=== PATIENT | female | born 1995 | race Caucasian/White ===

== ENCOUNTER 2020-06-29 10:51 | Emergency (ER) | payer OTHER ==
[~2020-06-29 10:51] MED LIST: COLACE 100MG C100 MG PO; IBUPROFEN600 MG PO; NORCO 10-325 T1 EACH PO; OMNICEF 300 MG300 MG PO
[2020-06-29 14:04] LABS: HEMOGLOBIN 13.9 gm/dl (12.3-15.3); RED BLOOD COUNT 4.53 M/UL (4.00-5.10); WHITE BLOOD COUNT 13.5 K/UL (4.5-11.0)
[2020-06-29 14:33] LABS: BUN/CREATININE RATIO 13 (0-10)
[2020-06-29] MEDS ORDERED: PHENERGAN 25 MG25 M1 PO (21:09)
== END 2020-06-29 21:30 | disposition home or self-care (01) ==
LOC: ER1 10:51
PROVIDERS: Physician Assistant Medical
DX: O99.351 Diseases of the nervous system complicating pregnancy, first trimester (principal); G43.909 Migraine, unspecified, not intractable, without status migrainosus; Z3A.09 9 weeks gestation of pregnancy
CPT/HCPCS: 80053; 81001; 85025; 87081; 87086; 87880; 96374; 96375; 99284; J1200; J2270; J2765

== ENCOUNTER 2020-11-04 10:52 | Outpatient (CLI) | payer OTHER ==
[~2020-11-04 10:52] MED LIST changes: +PHENERGAN 25 MG25 M1 PO
[2020-11-04 11:36] LABS: HEMOGLOBIN 12.2 gm/dl (12.3-15.3); RED BLOOD COUNT 4.04 M/UL (4.00-5.10); WHITE BLOOD COUNT 6.6 K/UL (4.5-11.0)
== END 2020-11-04 15:50 | disposition home or self-care (01) ==
LOC: GENOP 10:52
PROVIDERS: Obstetrics & Gynecology
DX: O47.02 False labor before 37 completed weeks of gestation, second trimester (principal); Z3A.27 27 weeks gestation of pregnancy; O99.352 Diseases of the nervous system complicating pregnancy, second trimester; G43.909 Migraine, unspecified, not intractable, without status migrainosus; O98.512 Other viral diseases complicating pregnancy, second trimester; U07.1 COVID-19
CPT/HCPCS: 36415; 81001; 82731; 83518; 85025; 96372; J0702; U0002

== ENCOUNTER 2020-11-05 12:08 | Outpatient (CLI) | payer OTHER | END 2020-11-05 13:40 | disposition home or self-care (01) | LOC: GENOP 12:08 | DX: O60.00 Preterm labor without delivery, unspecified trimester (principal); Z3A.00 Weeks of gestation of pregnancy not specified | CPT/HCPCS: 59025 ==

== ENCOUNTER 2020-11-09 23:28 | Emergency (ER) | payer OTHER ==
[2020-11-10 01:29] LABS: HEMOGLOBIN 12.8 gm/dl (12.3-15.3); RED BLOOD COUNT 4.43 M/UL (4.00-5.10); WHITE BLOOD COUNT 8.8 K/UL (4.5-11.0)
[2020-11-10 01:50] LABS: BUN/CREATININE RATIO 10 (0-10)
[2020-11-10] MEDS ORDERED: VENTOLIN HFA 66.7 GM INH (05:55)
== END 2020-11-10 06:00 | disposition home or self-care (01) ==
LOC: ER1 23:28
PROVIDERS: Family Medicine
DX: O98.513 Other viral diseases complicating pregnancy, third trimester (principal); U07.1 COVID-19; Z3A.28 28 weeks gestation of pregnancy; Z90.49 Acquired absence of other specified parts of digestive tract
CPT/HCPCS: 71045; 80053; 81001; 83615; 83690; 83735; 85025; 86140; 99285; J7030

== ENCOUNTER 2021-01-01 01:27 | Outpatient (CLI) | payer OTHER ==
[~2021-01-01 01:27] MED LIST changes: +VENTOLIN HFA 66.7 GM INH
== END 2021-01-01 05:20 | disposition home or self-care (01) ==
LOC: GENOP 01:27
DX: O46.93 Antepartum hemorrhage, unspecified, third trimester (principal); O47.03 False labor before 37 completed weeks of gestation, third trimester; O36.8130 Decreased fetal movements, third trimester, not applicable or unspecified; Z3A.35 35 weeks gestation of pregnancy
CPT/HCPCS: 59025; 96360; 96361

== ENCOUNTER 2021-01-07 20:51 | Inpatient (IN) | payer OTHER ==
[~2021-01-07] VITALS: Ht 170.2 cm; Wt 98.4 kg
[2021-01-08 02:38] LABS: RED BLOOD COUNT 4.17 M/UL (4.00-5.10); WHITE BLOOD COUNT 17.6 K/UL (4.5-11.0)
[2021-01-08] MEDS ORDERED: DOCUSATE SODIU100 MG PO (14:59)
[2021-01-08] MEDS ORDERED: IBUPROFEN800 MG PO (14:59)
[2021-01-08] MEDS ORDERED: HYDROCODON-ACE1 EAC4 PO (14:59)
[2021-01-09 05:50] LABS: HEMOGLOBIN 10.5 gm/dl (12.3-15.3)
== END 2021-01-10 12:00 | disposition home or self-care (01) | DRG 807 ==
LOC: GENOP 20:51 → OB 01-08 00:30
PROVIDERS: Obstetrics & Gynecology; ADMIT Obstetrics & Gynecology
PROC: 4A1HXCZ Monitoring of Products of Conception, Cardiac Rate, External Approach (ICD-10-PCS; 2021-01-07)
PROC: 10E0XZZ Delivery of Products of Conception, External Approach (ICD-10-PCS; principal; 2021-01-08)
PROC: 3E033VJ Introduction of Other Hormone into Peripheral Vein, Percutaneous Approach (ICD-10-PCS; 2021-01-08)
DX: O42.913 Preterm premature rupture of membranes, unspecified as to length of time between rupture and onset of labor, third trimester (principal); Z37.0 Single live birth; Z3A.36 36 weeks gestation of pregnancy; Z90.49 Acquired absence of other specified parts of digestive tract; Z20.822 Contact with and (suspected) exposure to COVID-19
CPT/HCPCS: 36415; 51702; 81001; 82800; 83518; 85014; 85018; 85025; 85461; 86850; 86900; 86901; J2590; J2790; J7120

== ENCOUNTER 2021-09-27 22:09 | Emergency (ER) | payer OTHER ==
[~2021-09-27 22:09] MED LIST changes: +DOCUSATE SODIU100 MG PO; +HYDROCODON-ACE1 EAC4 PO; +IBUPROFEN800 MG PO
[2021-09-28] MEDS ORDERED: POLYTRIM EYE DR10 ML OP (02:14)
== END 2021-09-28 02:27 | disposition home or self-care (01) ==
LOC: ER1 22:09
DX: J02.9 Acute pharyngitis, unspecified (principal); H10.9 Unspecified conjunctivitis; Z20.822 Contact with and (suspected) exposure to COVID-19
CPT/HCPCS: 0240U; 87081; 87880; 99284